=== PATIENT | male | born 1960 | race Caucasian/White ===

== ENCOUNTER 2020-12-17 02:47 | Observation (INO) | payer SELFPAY ==
[2020-12-17] VITALS (20 sets, daily range): BP systolic 88–220; BP diastolic 53–143; PULSE 75–96; RESP 12–22; TEMP 35.8–36.6; O2SAT 94–100; BMI 32.8; BMI 32.1
--- NOTE | ~2020-12-17 | US_ITS ---
US right upper quadrant INDICATION: Right upper quadrant abdominal pain PROCEDURE: Realtime right upper abdominal ultrasound. COMPARISON: CT dated 12/18/2019 FINDINGS: The pancreas is normal without focal mass or pancreatic ductal dilation. Liver echotexture is increased, consistent with fatty infiltration. There is normal directional flow in the portal ve in. There are gallstones with gallbladder wall thickening. Common bile duct measures 5 mm. No sonograph ic Eli's sign. IMPRESSION: 1: Cholelithiasis with gallbladder wall thickening. Consider cholecystitis. Clinical setting. Reviewed, dictated and finalized at location A. IMPRESSION: 1: Cholelithiasis with gallbladder wall thickening. Consider cholecystitis. Cli nical setting.
--- NOTE | ~2020-12-17 | CT_ITS ---
EXAMINATION: CT abdomen pelvis w con DATE: 12/17/2020 04:02 INDICATION: Right upper quadrant abdominal pain TECHNIQUE: Computed tomography (CT) of the abdomen and pelvis was performed with 100 cc Omnipaque 350 intravenous contrast. The dose-length product was 1064.83 mGy-cm. Automated exposure control and ite rative reconstruction technique were employed. COMPARISON: None. FINDINGS: There is dependent atelectasis. There is a 4 mm pleural-based left lower lobe nodule, image 14, likely benign. There is a 3 mm right lower lobe nodule. No significant pleural or pericardial ef fusion. Heart size normal. No significant vascular abnormality. Mild atherosclerosis. No aneurysm. No lymphadenopathy. Fatty infiltration of the liver. There are gallstones. There is mild gallbladder wall thickening or p ericholecystic fatty infiltration. Findings compatible with cholecystitis. Correlate clinically. The spleen, pancreas, adrenal glands and kidneys are unremarkable. No hydronephrosis. Small fat-containin g umbilical hernia. Mild lumbar spondylosis. There is a hemangioma L4 vertebral body. IMPRESSION: 1. Cholelithiasis with mild gallbladder wall thickening and pericholecystic fluid. Findings suspiciou s for acute cholecystitis. Clinically correlate. 2: Bilateral lower lobe pulmonary nodules measuring up to 4 mm, likely benign. Follow-up low dose CT chest in 12 months recommended. Reviewed, dictated and finalized at location A. IMPRESSION: 1. Cholelithiasis with mild gallbladder wall thickening and pericholecystic flu id. Findings suspicious for acute cholecystitis. Clinically correlate. 2: Bilateral lower lobe pulmonary nodules measuring up to 4 mm, likely benign. Follow-up low dose CT chest in 12 months recommended.
[2020-12-17 03:17] LABS: Basophils Percent Auto 0.4 % (0.2-1.2); Eosinophils Percent Auto 0.3 % (0-4.4); Hematocrit 49.4 % (42.0-52.0); Hemoglobin 16.8 g/dL (14.0-18.0); Immature Granulocyte Absolute 0.03 K/mm3 (0.00-0.031); Immature Granulocyte Percent A 0.3 % (0-0.5); Lymphocytes Absolute Auto 1.13 K/mm3 (0.9-3.2); Lymphocytes Percent Auto 12.6 % (18.3-44.2); Mean Corpuscular Hemoglobin 31.6 pg (26-34); Monocytes Absolute Auto 0.5 K/mm3 (0.1-0.6); Monocytes Percent Auto 5.1 % (2.6-8.5); Neutrophils Absolute Auto 7.3 K/mm3 (1.3-6.7); Neutrophils Percent Auto 81.3 % (45.5-73.1); Platelet Count Result 229 k/mm3 (150-375); Red Blood Count 5.31 M/mm3 (4.6-6.20); Red Cell Distribution Width 12.2 % (11.5-14.5)
[2020-12-17] MEDS: SODIUM CHLORIDE 0.9% IV 1,000 ML 999 ML IV CONT (03:17)
[2020-12-17] MEDS: fentaNYL CITRATE INJ (*CRX) 100 MCG/2 ML VIAL 50 MCG IV PUSH (03:17)
[2020-12-17 03:24] LABS: Anion Gap 17 mmol/L (8-16); Blood Urea Nitrogen 11 mg/dL (9-20); Calcium 10.6 mg/dL (8.4-10.2); Carbon Dioxide 22 mmol/L (22-30); Chloride 97 mmol/L (98-107); Estimated CRCL calculation 79 ml/min; Estimated Glomerular Filt Rate > 60; Glucose 175 mg/dL (65-110); Potassium 3.7 mmol/L (3.4-5.0); Sodium 136 mmol/L (137-145)
--- NOTE | 2020-12-17 03:25 | PC.NURSE ---
EDP Dr. Beaulieu made aware of pt elevated BP at this time. EDP wishes to control pain and see if that lowers BP.
[2020-12-17 03:50] LABS: Alanine Aminotransferase 48 U/L (4-50); Albumin Level 5.2 g/dL (3.5-5.1); Alkaline Phosphatase 118 U/L (38-126); Aspartate Amino Transferase 43 U/L (17-59); Lipase 117 U/L (23-300)
[2020-12-17 03:52] LABS: Add Urine Microscopic? YES; Appearance Urine Cloudy (Clear); Bilirubin Urine Negative (Negative); Blood Urine 1+ (Negative); Color Urine Yellow (Yellow); Glucose Urine UA 2+ mg/dL (Negative); Ketones Urine Trace mg/dL (Negative); Leukocyte Esterase Ur Negative LEU/UL (Negative); Nitrate Urine Negative (Negative); Protein Urine 1+ mg/dL (Negative); RBC Urine 0-2 /hpf (0-2); Specific Grav Ur 1.019 (1.001-1.035); Urobilinogen Urine Negative mg/dL (<2.0)
[2020-12-17] MEDS: MORPHINE SULFATE (*CRX) 4 MG/ML INJ IV PUSH ×3 (05:03→08:16)
--- NOTE | 2020-12-17 05:16 | ED.ABDPAIN ---
HPI - Abdominal Pain General Chief Complaint: Abdominal Pain <Iván Beaulieu MD - Last Filed: 12/17/20 07:15> Stated Complaint: abdominal pain <Iván Beaulieu MD - Last Filed: 12/17/20 07:15> Time Seen by Provider: 12/17/20 02:54 <Iván Beaulieu MD - Last Filed: 12/17/20 07:15> Source: patient <Iván Beaulieu MD - Last Filed: 12/17/20 07:15> History of Present Illness HPI narrative: Patient presents with upper abdominal pain. Pain for symptoms been present for approximately 2 months however today they were much worse so wanted to come in for evaluation. Pain is sharp, constant, no clear aggravating or alleviating factors. Pain does radiate to his back. Denies fevers. Does report some nausea and vomiting today. Reports his last bowel movement was 2 days ago and is concerned he was constipated. Patient ports he had a hernia repair but denies any other abdominal surgeries. <Iván Beaulieu MD - Last Filed: 12/17/20 07:15> Related Data Home Medications: Home Medications Medication Instructions Recorded Confirmed No Home Medications 12/17/20 12/17/20 <Iván Beaulieu MD - Last Filed: 12/17/20 07:15> Allergies/Adverse Reactions: Allergies Allergy/AdvReac Type Severity Reaction Status Date / Time No Known Allergies Allergy Verified 12/17/20 03:02 <Iván Beaulieu MD - Last Filed: 12/17/20 07:15> Review of Systems Review of Systems: CONSTITUTIONAL: Denies fever, chills, or sweats. EYES: Denies visual changes, redness, or discharge. ENT: Denies rhinorrhea, congestion, sore throat, or otalgia. CARDIOVASCULAR: Denies chest pain, palpitations, or edema. RESPIRATORY: Denies cough or dyspnea. GASTROINTESTINAL: Reports abdominal pain nausea and vomiting GENITOURINARY: Denies dysuria or hematuria. SKIN: Denies rash or itching. MUSCULOSKELETAL: Denies back pain, joint pain, or myalgia. NEUROLOGIC: Denies headache, numbness, dizziness, or weakness. PSYCHIATRIC: Denies anxiety or depression. <Iván Beaulieu MD - Last Filed: 12/17/20 07:15> PMFSH Past Medical History Medical History: Medical History (Updated 12/17/20 @ 15:04 by Kamlesh Miller MD) GERD (gastroesophageal reflux disease) Obesity <Iván Beaulieu MD - Last Filed: 12/17/20 07:15> Surgical History Surgical History: Surgical History (Updated 12/17/20 @ 14:42 by Hakeem Moody MD) History of appendectomy <Iván Beaulieu MD - Last Filed: 12/17/20 07:15> Social History Social History: Social History Smoking packs per day: 1 Smoking cigarettes per day: 20.0 Years smoked: 40 Smoking pack-years: 40.00 Smoking status: Current every day smoker Tobacco type: cigarettes Second hand tobacco smoke exposure: Yes Alcohol intake: never Substance use: never Gender identity (if verbalized by the patient): Female Sexual Orientation (if Verbalized by the Patient): Straight or Heterosexual Spiritual care concerns: No <Iván Beaulieu MD - Last Filed: 12/17/20 07:15> Exam Narrative: GENERAL: Well-appearing, well-nourished, and in mild distress due to pain. HEAD: Normocephalic, atraumatic. EYES: PERRLA and EOMI. ENT: Nares clear, no rhinorrhea or epistaxis. Mucous membranes moist. NECK: Supple. No masses. No JVD ABDOMEN: Moderate tenderness in the right upper quadrant soft, nondistended SKIN: Warm, dry, no rash. NEURO: No focal deficits. Alert and oriented x3. PSYCH: Normal mood and affect. <Iván Beaulieu MD - Last Filed: 12/17/20 07:15> Course Course Emergency Course: H&P as above, vs with hypertension, exam with pain in the right upper quadrant, labs clinically unremarked, CT with pericholecystic fat stranding and some cholelithiasis there is no gallbladder wall thickening or biliary dilation given CT findings ultrasound of the right upper quadrant was ordered, Patient sign
[2020-12-17] MEDS: ONDANSETRON INJ 4 MG/2 ML VIAL IV PUSH (06:22)
[2020-12-17] MEDS: LABETALOL HCL INJ 100 MG/20 ML VIAL 20 MG IV PUSH (08:58)
[2020-12-17] MEDS: amLODIPine BESYLATE 5 MG TABLET 10 MG PO (09:42)
--- NOTE | 2020-12-17 11:36 | ADMGEN ---
This patient, Jimbo Varghese, was admitted to Medical Room 346-01. Patient oriented to hospital policies and general routines including ID bracelet, bed and alarms, visiting hours, pain management, procedures, bathroom and other care routines, personal items, smoking policy, room service/diet, and visiting hours. Information on how to activate the Rapid Response Team has been discussed. Patient/Family are encouraged to report perceived risks to care and to ask questions if they do not understand what they are told or what they should do.
[2020-12-17] MEDS: hydrALAZINE HCL 20 MG/ML VIAL 10 MG IV PUSH (12:44)
[2020-12-17] MEDS: fentaNYL CITRATE INJ (*CRX) 100 MCG/2 ML VIAL 25 MCG IV PUSH (12:50)
[2020-12-17] MEDS: SODIUM CHLORIDE 0.9% IV 1,000 ML 125 ML IV CONT (13:07)
--- NOTE | 2020-12-17 14:41 | WPDANESEPPF ---
Anes - Initial Pre Proc Eval Procedure: Operation Date: 12/17/20 15:00 Proposed Procedures p Laparoscopic Cholecystectomy - hBavin Jama MD Date/Time: 12/17/20 14:41 Surgeon: Bhavin Jama MD Pre Op Diagnosis: Acute cholecystitis Patient Data Age: 60 Gender: M Height: 1.8 m Weight: 104.6 kg Last Vital Signs Temp 35.8 C L 12/17/20 11:28 Pulse 90 12/17/20 11:28 Resp 22 H 12/17/20 11:28 BP 180/96 H 12/17/20 13:32 Pulse Ox 98 12/17/20 11:28 Allergies Allergy/AdvReac Type Severity Reaction Status Date / Time No Known Allergies Allergy Verified 12/17/20 03:02 Home Medications Medication Instructions Recorded Confirmed Type No Home Medications 12/17/20 12/17/20 History Laboratory Tests 12/17/20 12/17/20 12/17/20 03:05 03:05 03:05 WBC 9.0 K/mm3 K/mm3 (4.5-10.0) RBC 5.31 M/mm3 M/mm3 (4.6-6.20) Hgb 16.8 g/dL g/dL (14.0-18.0) Hct 49.4 % % (42.0-52.0) MCV 93.0 fl fl (80-100) MCH 31.6 pg pg (26-34) MCHC 34.0 g/dl g/dl (32-36) RDW 12.2 % % (11.5-14.5) Plt Count 229 k/mm3 k/mm3 (150-375) MPV 10.0 fl fl (7.4-10.4) Immature Gran % (Auto) 0.3 % % (0-0.5) Neut % (Auto) 81.3 % H % (45.5-73.1) Lymph % (Auto) 12.6 % L % (18.3-44.2) [place] % (Auto) 5.1 % % (2.6-8.5) Eos % (Auto) 0.3 % % (0-4.4) Baso % (Auto) 0.4 % % (0.2-1.2) Lymph # (Auto) 1.13 K/mm3 K/mm3 (0.9-3.2) [place] # (Auto) 0.5 K/mm3 K/mm3 (0.1-0.6) Eos # (Auto) 0.0 K/mm3 K/mm3 (0-0.3) Baso # (Auto) 0.0 K/mm3 K/mm3 (0.0-0.1) Abs Immat Gran (auto) 0.03 K/mm3 K/mm3 (0.00-0.031) Absolute Neuts (auto) 7.3 K/mm3 H K/mm3 (1.3-6.7) Absolute Nucleated RBC 0.0 K/mm3 K/mm3 (0.0-0.012) Nucleated RBC % 0.0 % % (0.0-0.2) Sodium 136 mmol/L L mmol/L (137-145) Potassium 3.7 mmol/L mmol/L (3.4-5.0) Chloride 97 mmol/L L mmol/L (98-107) Carbon Dioxide 22 mmol/L mmol/L (22-30) Anion Gap 17 mmol/L H mmol/L (8-16) BUN 11 mg/dL mg/dL (9-20) Creatinine 1.10 mg/dL mg/dL (0.7-1.3) Estim Creat Clear Calc 79 ml/min ml/min Estimated GFR > 60 (59 - ) Glucose 175 mg/dL H mg/dL (65-110) Calcium 10.6 mg/dL H mg/dL (8.4-10.2) Total Bilirubin 1.0 mg/dL mg/dL (0.2-1.3) Direct Bilirubin 0.0 mg/dL mg/dL (0-0.3) AST 43 U/L U/L (17-59) ALT 48 U/L U/L (4-50) Alkaline Phosphatase 118 U/L U/L (38-126) Total Protein 9.0 g/dL H g/dL (6.3-8.2) Albumin 5.2 g/dL H g/dL (3.5-5.1) Lipase 117 U/L U/L (23-300) Urine Color Urine Appearance Urine pH Ur Specific Lyle Urine Protein Urine Glucose (UA) Urine Ketones Ur Blood (Man) Urine Nitrate Urine Bilirubin Urine Urobilinogen Leukocyte Esterase Rfl Urine RBC 12/17/20 03:33 WBC RBC Hgb Hct MCV MCH MCHC RDW Plt Count MPV Immature Gran % (Auto) Neut % (Auto) Lymph % (Auto) [place] % (Auto) Eos % (Auto) Baso % (Auto) Lymph # (Auto) [place] # (Auto) Eos # (Auto) Baso # (Auto) Abs Immat Gran (auto) Absolute Neuts (auto) Absolute Nucleated RBC Nucleated RBC % Sodium Potassium Chloride Carbon Dioxide Anion Gap BUN Creatinine Estim Creat Clear Calc Estimated GFR Glucose Calcium Total Bilirubin Direct Bilirubin AST ALT Alkaline Sergio
--- NOTE | 2020-12-17 15:14 | PM.IMHP ---
H&P: HPI History of Present Illness Date/Time: 12/17/20 15:14 Chief Complaint: Right upper quadrant abdominal pain Narrative: Patient is a 60-year-old man who for quite some time has had episodes of right upper quadrant abdominal pain associated with nausea. These would last a variable amount of time sometimes up to 6 hours but then always go away. In the last couple of days he started having some of these pains. It started in his back but then became worse. Last night the pain was in the right upper quadrant and went through to his back. It was associated with nausea and vomiting. He came to the emergency room. Evaluation there showed right upper quadrant tenderness. Both CT scan and ultrasound showed multiple gallstones and evidence of acute cholecystitis. Liver enzymes were normal and white blood cell count is 9000. He is a smoker. His blood pressure has been quite high here. He does not have a history of hypertension and takes no medications. He is admitted now with plans to proceed with laparoscopic cholecystectomy for acute cholecystitis with gallstones in cystic duct obstruction. Review of Systems Review of Systems: All systems reviewed & are unremarkable except as noted in HPI and below Constitutional: Constitutional: Denies chills and Denies fever(s) Cardiovascular: Cardiovascular: Denies chest pain, Denies diaphoresis, Denies dyspnea and Denies paroxysmal nocturnal dyspnea Respiratory: Respiratory: Denies chest congestion, Denies cough and Denies dyspnea Gastrointestinal: Gastrointestinal: Reports as per HPI, Reports abdominal pain and Reports vomiting Integumentary/Breasts: Skin/Breast: Denies lesions and Denies rash PMFSH Past Medical History Medical History GERD (gastroesophageal reflux disease) Obesity Surgical History Surgical History History of appendectomy Social History Social History Smoking packs per day: 1 Smoking cigarettes per day: 20.0 Years smoked: 40 Smoking pack-years: 40.00 Smoking status: Current every day smoker Tobacco type: cigarettes Second hand tobacco smoke exposure: Yes Alcohol intake: never Substance use: never Gender identity (if verbalized by the patient): Female Sexual Orientation (if Verbalized by the Patient): Straight or Heterosexual Spiritual care concerns: No Meds Home Medications and Allergies Home Medications Medication Instructions Recorded Confirmed Type No Home Medications 12/17/20 12/17/20 History Allergies Allergy/AdvReac Type Severity Reaction Status Date / Time No Known Allergies Allergy Verified 12/17/20 03:02 Vital Signs Vital Signs - 24 hr 12/17/20 02:55 12/17/20 03:30 12/17/20 05:02 Temperature 36.4 C L Pulse Rate 75 88 85 Respiratory Rate 18 16 19 Blood Pressure 217/143 H 207/122 H 201/130 H Pulse Oximetry 100 99 100 12/17/20 06:23 12/17/20 08:25 12/17/20 09:49 Temperature Pulse Rate 86 94 96 Respiratory Rate 13 14 14 Blood Pressure 184/99 H 203/126 H 189/121 H Pulse Oximetry 95 98 99 12/17/20 10:02 12/17/20 11:28 12/17/20 11:29 Temperature 35.8 C L Pulse Rate 90 90 Respiratory Rate 12 22 H Blood Pressure 196/124 H 202/125 H 220/100 H Pulse Oximetry 99 98 12/17/20 13:32 Temperature Pulse Rate Respiratory Rate Blood Pressure 180/96 H Pulse Oximetry Exam Const: General: cooperative, no acute distress, alert, awake, ill appearing, tired appearing and uncomfortable; No confusion Nutritional Appearance: overweight Orientation/consciousness: No confusion Limitations: no limitations HENMT: Head: normocephalic, atraumatic, no contusions and no scalp lesions Ears: external ears normal General nose exam: Normal external nose present Face and sinus: face symmetric and dry mucous membranes Mouth: Yes Normal o
--- NOTE | 2020-12-17 15:23 | WPDHPUPDATE1 ---
History and Physical Update Update Date/Time: 12/17/20 15:23 History and Physical has been reviewed, including an updated exam of the patient. There are NO changes in the patient's condition. Risks, benefits, and alternatives have been discussed and questions answered. Patient agrees to proceed with procedure.
[2020-12-17] MEDS: LACTATED RINGERS 1,000 ML 30 ML IV CONT ×2 (15:28→16:54)
[2020-12-17] MEDS: BUPIVACAINE/EPINEPHRINE 0.5% 50 ML VIAL (15:59)
--- NOTE | 2020-12-17 16:59 | W.PM.PROC2 ---
Procedure Note - Detailed Date of Procedure 12/17/20 Pre-op Diagnosis Acute on chronic cholecystitis, cholelithiasis with cystic duct obstruction Post-op Diagnosis same Procedure Performed Laparoscopic cholecystectomy Surgeon Bhavin Jama MD [employer]ian[employer] WING Anesthesia general and local (0.5% Marcaine with epinephrine) Indications Patient is a 60-year-old man who has had chronic recurrent right upper quadrant abdominal pain for quite some time. In the last 24 hours it had gotten considerably worse and was unrelenting. He came to the emergency room where he was still severely painful despite analgesics. Both CT and ultrasound showed evidence of acute cholecystitis. He is taken to surgery now for laparoscopic cholecystectomy Findings Gangrenous acute cholecystitis with cystic duct obstruction, many gallstones, no biliary ductal dilatation, no liver abnormalities Description of Procedure The patient was taken to surgery and induced into general anesthesia. The abdomen was prepped and draped. Trocars were placed in the usual fashion using 0.5% Marcaine with epinephrine an applied Medical optical trocars. A 5 mm camera was used. The gallbladder was covered with omental adhesions. These were taken down primarily bluntly. The gallbladder was tensely distended and obviously gangrenous. I tried to decompress it with a laparoscopic aspirator but the bile was too thick. I then used the suction and it did decompress quite a bit. It was elevated and additional adhesions in the area of the infundibulum were taken down. Eventually the gallbladder was retracted anterosuperiorly and a half that we could retract the infundibulum. The gallbladder was very difficult to grasp as it is wall was thickened and it was very full of gallstones. With traction on the infundibulum dissection in the cholecystohepatic triangle was carried out. This was difficult due to the severe inflammation, hypervascularity, and adhesions. Using blunt and sharp dissection as well as some dissection with the suction, the cystic duct and cystic artery were carefully dissected. The gallbladder was dissected off the liver at its lower 3rd. Critical view was achieved. We then securely clipped and divided the cystic duct and cystic artery. From there the gallbladder was retracted and dissection of the very thickened peritoneal attachments was carried out. A lot of the wall of the gallbladder was gangrenous. Eventually the gallbladder was dissected free of its attachments to the liver. It was placed immediately in an Endo-Catch bag. It was retrieved through the 10 11 epigastric trocar site. I had to enlarge the epigastric trocar site to accommodate the gallbladder with its very thickened wall and many stones inside. The epigastric trocar was replaced. I occluded the skin and subcutaneous with a couple of towel clips so that we could reinsufflated. From there we retracted the liver again and irrigated and suctioned the right upper quadrant. Additional cautery was used so that hemostasis was achieved. Repeated irrigation and suctioning were carried out until the right upper quadrant was quite clean with no evidence of bleeding or bile leakage. There had been minimal spillage during the surgery. I then evacuated CO2 and removed the trocar sleeves. The fascia at the epigastric port was closed with running 0 Vicryl suture. The subcutaneous was closed with interrupted 3 0 Vicryl suture. All skin wounds were closed with subcuticular running 4-0 Monocryl skin suture. The patient was awakened and taken to recovery in good condition. Sponge and needle counts were correct x2. Estimated Blood Loss 50 Urine Output 200 Drains No Packing No Pathology yes (Gallbladder) Complications No immediate complications Condition stable Disposition PACU
--- NOTE | 2020-12-17 18:25 | SUR.PHASEI ---
1814; PT AWAKE, DENIES PAIN. TALKATIVE. PT STATES I FEEL SO MUCH BETTER NOW
[2020-12-17] MEDS: LACTATED RINGERS 1,000 ML 100 ML IV CONT (19:31)
[2020-12-17] MEDS: FAMOTIDINE 20 MG/2 ML VIAL IV PUSH (20:32)
[2020-12-17] MEDS: ENOXAPARIN 30 MG/0.3 ML SYRINGE SUB-Q (20:32)
[2020-12-17] MEDS: HYDROcodone/acetaminophen (*CRX) 5-325 MG TABLET 1 TAB PO (23:30)
[2020-12-18 00:30] VITALS: BP 120/85; PULSE 98; RESP 16; TEMP 35.9; O2SAT 95
[2020-12-18] MEDS: MORPHINE SULFATE (*CRX) 4 MG/ML INJ IV PUSH ×3 (00:58→19:46)
[2020-12-18 04:11] VITALS: BP 140/96; PULSE 86; RESP 18; TEMP 36.2; O2SAT 96
[2020-12-18] MEDS: HYDROcodone/acetaminophen (*CRX) 10-325 MG TABLET 1 TAB PO ×5 (04:19→21:34)
[2020-12-18] MEDS: LACTATED RINGERS 1,000 ML 100 ML IV CONT ×2 (06:14→18:18)
[2020-12-18 06:18] LABS: Hematocrit 41.2 % (42.0-52.0); Mean Corpuscular Hemoglobin 31.7 pg (26-34); Mean Corpuscular Volume 93.4 fl (80-100); Mean Platelet Volume 9.8 fl (7.4-10.4); Platelet Count Result 222 k/mm3 (150-375); Red Blood Count 4.41 M/mm3 (4.6-6.20); Red Cell Distribution Width 12.4 % (11.5-14.5); White Blood Count 11.6 K/mm3 (4.5-10.0)
[2020-12-18 06:41] LABS: Anion Gap 12 mmol/L (8-16); Blood Urea Nitrogen 15 mg/dL (9-20); Calcium 9.2 mg/dL (8.4-10.2); Carbon Dioxide 25 mmol/L (22-30); Chloride 100 mmol/L (98-107); Estimated CRCL calculation 63 ml/min; Estimated Glomerular Filt Rate 52; Glucose 133 mg/dL (65-110); Potassium 3.7 mmol/L (3.4-5.0); Sodium 137 mmol/L (137-145)
[2020-12-18 08:11] VITALS: BP 150/86; PULSE 82; RESP 18; TEMP 36.2; O2SAT 96
[2020-12-18] MEDS: ENOXAPARIN 30 MG/0.3 ML SYRINGE SUB-Q ×2 (08:36→21:34)
[2020-12-18] MEDS: FAMOTIDINE 20 MG/2 ML VIAL IV PUSH (08:37)
--- NOTE | 2020-12-18 09:11 | PM.PNGS ---
Progress Note: A&P Assessment and Plan (1) Cholelithiasis with acute on chronic cholecystitis with biliary obstruction: Code(s): K80.13 - Calculus of gallbladder with acute and chronic cholecystitis with obstruction Status: Acute Assessment and Plan: doing well postop day 1. Continue IV antibiotics and slowly advance diet due to severe acute cholecystitis on chronic cholecystitis. Up walking today. P.r.n. analgesics. Recheck labs and exam again tomorrow. (2) Hypertension: Qualifiers: Hypertension type: unspecified Qualified Code(s): I10 - Essential (primary) hypertension Code(s): I10 - Essential (primary) hypertension Status: Acute Assessment and Plan: Still elevated this morning but much better than preop. Subjective Subjective Date/Time Seen: 12/18/20 09:11 Post Op day: 1 Patient reports: feels better, pain is less, tolerating liquids well and afebrile Review of Systems Review of Systems: All systems reviewed & are unremarkable except as noted in HPI and below Constitutional: Constitutional: Denies headache(s) Cardiovascular: Cardiovascular: Denies chest pain and Denies dyspnea Respiratory: Respiratory: Denies cough and Denies dyspnea Gastrointestinal: Gastrointestinal: Reports as per HPI Exam Const: General: comfortable and no acute distress; No confusion Orientation/consciousness: patient oriented x3 and No confusion GI: Inspection: incision ( Dry and healing well) and obesity GI Palp: Yes Soft to palpation, Yes Tenderness to palpation present (GI), No Guarding due to palpation present (GI) and No Rebound tenderness present Auscultation: Hypoactive bowel sounds present Extrem: General: no calf tenderness and no edema Objective Data Vital Signs Vital Signs: Vital Signs - 24 hr 12/17/20 09:49 12/17/20 10:02 12/17/20 11:28 Temperature 35.8 C L Pulse Rate 96 90 90 Respiratory Rate 14 12 22 H Blood Pressure 189/121 H 196/124 H 202/125 H Pulse Oximetry 99 99 98 12/17/20 11:29 12/17/20 13:32 12/17/20 16:54 Temperature 36.4 C Pulse Rate 75 Respiratory Rate 14 Blood Pressure 220/100 H 180/96 H 88/54 L Pulse Oximetry 99 12/17/20 17:10 12/17/20 17:25 12/17/20 17:40 Temperature Pulse Rate 76 75 87 Respiratory Rate 16 15 18 Blood Pressure 93/53 L 101/68 112/71 Pulse Oximetry 100 100 95 12/17/20 17:55 12/17/20 18:10 12/17/20 18:50 Temperature 35.9 C L Pulse Rate 80 94 83 Respiratory Rate 16 16 20 Blood Pressure 112/77 131/89 129/67 Pulse Oximetry 94 96 94 12/17/20 19:29 12/17/20 20:30 12/18/20 00:30 Temperature 36.3 C L 36.6 C 35.9 C L Pulse Rate 83 93 98 Respiratory Rate 16 16 16 Blood Pressure 130/86 130/79 120/85 Pulse Oximetry 97 97 95 12/18/20 04:11 12/18/20 08:11 Temperature 36.2 C L 36.2 C L Pulse Rate 86 82 Respiratory Rate 18 18 Blood Pressure 140/96 H 150/86 H Pulse Oximetry 96 96 Intake/Output Intake/Output: Intake & Output 12/15/20 12/16/20 12/17/20 12/18/20 23:59 23:59 23:59 23:59 Intake Total 2108 1100 Output Total 775 700 Balance 1333 400 Meds/Results Medications: Active Medications Generic Name Dose Route Start Last Admin Trade Name Freq PRN Reason Stop Dose Admin Acetaminophen 500 mg 12/17/20 18:25 Acetaminophen 500 Mg Tablet PO Q6H PRN Mild Pain (1-3) or Fever Hydrocodone Bitart/Acetaminophen 1 tab 12/17/20 18:25 12/17/20 23:30 Hydrocodone/Acetaminophen (*Crx) 5-325 Mg Tablet PO 1 tab Q4H PRN Administration Pain Rated 4-6 Hydrocodone Bitart/Acetaminophen 1 tab 12/17/20 18:25 12/18/20 08:35 Hydrocodone/Acetaminophen (*Crx) 10-325 Mg Tablet PO 1 tab Q4H PRN Administration Pain Rated 7-10 Enoxaparin Sodium 30 mg 12/17/20 21:00 12/18/20 08:36 Enoxaparin 30 Mg/0.3 Ml Syringe SUB-Q 30 mg Q12HR DIMITRIOS Administration Piperacillin/Tazobactam/Dextrose 3.375 gm in 50 mls @ 100 mls/hr 12/17/20 13:00 12/18/20
[2020-12-18 12:00] VITALS: BP 127/84; PULSE 94; RESP 16; TEMP 36.2; O2SAT 96
[2020-12-18] MEDS: HYDROcodone/acetaminophen (*CRX) 5-325 MG TABLET 1 TAB PO (14:58)
[2020-12-18 16:00] VITALS: BP 127/78; PULSE 80; RESP 16; TEMP 36.1; O2SAT 97
[2020-12-18 20:00] VITALS: BP 147/87; PULSE 78; RESP 16; TEMP 36.4; O2SAT 95
[2020-12-19] MEDS: HYDROcodone/acetaminophen (*CRX) 10-325 MG TABLET 1 TAB PO ×3 (01:29→12:14)
[2020-12-19 06:00] VITALS: BP 139/78; PULSE 86; RESP 16; TEMP 36.1; O2SAT 97
[2020-12-19 06:57] LABS: Hematocrit 38.4 % (42.0-52.0); Hemoglobin 12.8 g/dL (14.0-18.0); Mean Corpuscular HGB Conc 33.3 g/dl (32-36); Mean Corpuscular Hemoglobin 31.1 pg (26-34); Mean Corpuscular Volume 93.4 fl (80-100); Mean Platelet Volume 9.9 fl (7.4-10.4); Platelet Count Result 183 k/mm3 (150-375); Red Blood Count 4.11 M/mm3 (4.6-6.20); Red Cell Distribution Width 12.2 % (11.5-14.5); White Blood Count 6.1 K/mm3 (4.5-10.0)
[2020-12-19 07:02] LABS: Anion Gap 8 mmol/L (8-16); Blood Urea Nitrogen 12 mg/dL (9-20); Calcium 8.7 mg/dL (8.4-10.2); Carbon Dioxide 25 mmol/L (22-30); Chloride 98 mmol/L (98-107); Estimated CRCL calculation 67 ml/min; Estimated Glomerular Filt Rate 57; Glucose 100 mg/dL (65-110); Potassium 3.4 mmol/L (3.4-5.0); Sodium 131 mmol/L (137-145)
[2020-12-19] MEDS: ENOXAPARIN 30 MG/0.3 ML SYRINGE SUB-Q (08:44)
--- NOTE | 2020-12-19 10:11 | PM.DS ---
DS: Admitting Diagnosis Admitting Diagnosis Acute on chronic cholecystitis with cholelithiasis and cystic duct obstruction DS: Discharge Diagnosis Discharge Diagnosis (1) Cholelithiasis with acute on chronic cholecystitis with biliary obstruction: Code(s): K80.13 - Calculus of gallbladder with acute and chronic cholecystitis with obstruction Status: Acute DS: Summary Hospital Course Hospital Course: patient presented to the emergency room on December 17 with complaints of right upper quadrant abdominal pain associated with nausea. This has been going on for several months. However during the couple of days before he came to the emergency room it got worse and the pain would not resolve. He had vomiting as well. In the emergency room his white count and liver enzymes were normal. However on CT and ultrasound he had multiple gallstones and evidence of acute cholecystitis. He was admitted by Dr. carlin and then taken to surgery on 12/17/20. He underwent laparoscopic cholecystectomy. He was found to have gangrenous cholecystitis. The surgery went well. Due to the nature of the gallbladder infection he was continued on IV antibiotics postop day 1. His diet was slowly advanced. By postop day 2. He was considerably more comfortable. His labs looked good. He was able to be discharged on a low-fat diet and oral antibiotics in much improved condition. Status at Discharge Overall status at discharge: patient is progressing back to baseline Time Spent with Patient Time attestation: Total time spent providing and/or coordinating discharge services: Exam GI: Inspection: incision ( All incisions healing well) and obesity GI Palp: Yes Tenderness to palpation present (GI) Auscultation: normal bowel sounds DS: Data Data Completed and Pending Pending studies at discharge: Pending at discharge 12/17/20 15:52 Surgical [PTH] Routine Labs on day of discharge: Labs from last 24 hours 12/19/20 12/19/20 06:39 06:39 WBC 6.1 RBC 4.11 L Hgb 12.8 L Hct 38.4 L MCV 93.4 MCH 31.1 MCHC 33.3 RDW 12.2 Plt Count 183 MPV 9.9 Sodium 131 L Potassium 3.4 Chloride 98 Carbon Dioxide 25 Anion Gap 8 BUN 12 Creatinine 1.30 Estim Creat Clear Calc 67 Estimated GFR 57 L Glucose 100 Calcium 8.7 Discharge Plan Discharge Attending physician on discharge: Bhavin Carlin Discharging Clinician: Bhavin Carlin Anticipated Discharge Date/Time: 12/19/20 10:16 Patient Disposition: Home, Self-Care Activity: may shower, no straining and as tolerated Diet: low fat Wound Care Instructions: incision open to air Discharge Instructions: Ambulate 3-4 x per day and as tolerated. No lifting over 15-20lbs. May bathe or shower. Stairs are OK. May drive a car in 3 days. Patient Instructions: Antibiotic Form, How to Stop Smoking (DC), Pain Management (DC) Stand Alone Forms: General Discharge Information, Work/School Release IP Follow-up/Referrals: Bhavin Carlin MD [Physician] - 2 Weeks ( call Dr. villalobos office for appointment) Discharge Medications: New hydrocodone-acetaminophen 5-325 mg tablet 1 - 2 tablet PO Q6H PRN (Reason: pain) Qty: 14 RF: 0 amoxicillin-pot clavulanate [Augmentin] 875-125 mg tablet 1 tablet PO Q12H Qty: 10 RF: 0 ketorolac 10 mg tablet 10 mg PO Q6H 4 Days Qty: 16 RF: 0 Continued No Home Medications RF: 0 Date of admission: 12/17/20 08:46 Primary Care Provider: PHYSICIAN,DIRECTOR LEARNING SERVICES Admitting Provider: Bhavin Cariln Attending physician on admission: Bhavin Carlin Condition: Improved
== END 2020-12-19 13:45 | disposition home or self-care (01) ==
LOC: ANHED 09:02 → ANH3MED 09:16
PROVIDERS: Emergency Medicine; Admitting Provider Surgery; Emergency Provider Emergency Medicine; Visit Provider Surgery
PROC: 0FT44ZZ Resection of Gallbladder, Percutaneous Endoscopic Approach (ICD-10-PCS; CPT 47562; principal; 2020-12-17 15:00)
DX: K80.13 Calculus of gallbladder with acute and chronic cholecystitis with obstruction (principal); R10.11 Right upper quadrant pain; F17.210 Nicotine dependence, cigarettes, uncomplicated; K21.9 Gastro-esophageal reflux disease without esophagitis; I10 Essential (primary) hypertension
CPT/HCPCS: 47562; 36415; 74177; 76705; 80048; 80076; 81001; 83690; 85025; 85027; 88304; 96361; 96365; 96367; 96372; 96375; 96376; 99285; A9270; C1713; G0378; G0379; J0360; J1100; J1170; J1200; J1650; J1741; J2250; J2270; J2405; J2543; J2704; J2710; J3010; J7030; J7120; Q9967